=== PATIENT | female | born 1980 | race Two or more races ===

== ENCOUNTER → 2019-08-04 | Outpatient (CLI) | payer OTHER ==
--- NOTE | 2019-08-04 14:26 | NUR ---
Pt arrived for outpatient bladder scan. Multiple readings registered 175-179ml within the bladder. PT voided completely and without hesitancy or retention. Post void bladder scan (x3) indicated 0mL residual. PT stated that despite this, she still felt bladder urgency and the need to void. Results called in to [facility].
== END ==
LOC: US 14:09
PROVIDERS: ATTEND Family Medicine
DX: N39.0 Urinary tract infection, site not specified (principal)
CPT/HCPCS: 51798